=== PATIENT | female | born 1970 | race Hispanic/Latino ===

== ENCOUNTER 2023-01-29 13:33 | Emergency (ER) | payer OTHER ==
[~2023-01-29] VITALS: Ht 147.3 cm; Wt 59.0 kg
[2023-01-29] MEDS ORDERED: CYCLOBENZAPRINE HCL 10 MG TABLET PO ONE (14:30)
[2023-01-29] MEDS ORDERED: IBUPROFEN 600 MG TABLET PO ONE (14:30)
[2023-01-29] MEDS ORDERED: IBUP-2070 PO (15:17)
[2023-01-29] MEDS ORDERED: CYCL-309 PO (15:17)
[2023-01-29 16:20] VITALS: BP 136/83; PULSE 91; RESP 17; O2SAT 98
== END 2023-01-29 16:20 | disposition home or self-care (01) ==
LOC: EDH 13:33
DX: S39.012A Strain of muscle, fascia and tendon of lower back, initial encounter (principal); G89.11 Acute pain due to trauma; M79.621 Pain in right upper arm; V89.2XXA Person injured in unspecified motor-vehicle accident, traffic, initial encounter; Y93.89 Activity, other specified; Y92.89 Other specified places as the place of occurrence of the external cause; Y99.8 Other external cause status
CPT/HCPCS: 72100; 73060